=== PATIENT | male | born 1935 | race Caucasian/White ===

== ENCOUNTER 2020-04-06 16:23 | Inpatient (IN) | payer MEDICARE, OTHER ==
[~2020-04-06] VITALS: Ht 170.2 cm; Wt 70.8 kg
[2020-04-06] MEDS ORDERED: METO-357 PO (16:56)
[2020-04-06] MEDS ORDERED: MEMA10TA PO (16:56)
[2020-04-06] MEDS ORDERED: GABA-536 PO (16:56)
[2020-04-06] MEDS ORDERED: LEVO25TA2 PO (16:56)
[2020-04-06] MEDS ORDERED: TORS20TA3 PO (16:56)
[2020-04-06] MEDS ORDERED: TAMS-3 PO (16:56)
[2020-04-06] MEDS ORDERED: ROSU40TA PO (16:56)
[2020-04-06] MEDS ORDERED: OLANZAPINE 10 MG VIAL IM ONE (17:30)
[2020-04-06 17:45] VITALS: BP 167/84
[2020-04-06] MEDS ORDERED: MAG HYDROX/AL HYDROX/SIMETH 30 ML LIQUID UDC PO PRN (17:45)
[2020-04-06] MEDS ORDERED: MAGNESIUM HYDROXIDE 30 ML LIQUID UDC PO PRN (17:45)
[2020-04-06] MEDS ORDERED: ACETAMINOPHEN 325 MG TABLET PO PRN (17:45)
[2020-04-06] MEDS ORDERED: TEMAZEPAM 7.5 MG CAPSULE PO PRN (17:45)
[2020-04-06 20:15] VITALS: BP 174/71
[2020-04-06] MEDS: ATORVASTATIN 40 MG TABLET PO SCH (20:19)
[2020-04-06] MEDS: LORAZEPAM 0.5 MG TABLET PO PRN (20:19)
[2020-04-07 06:35] LABS: ALANINE AMINOTRANSFERASE 26 U/L (16-63); ALKALINE PHOSPHATASE 55 U/L (50-136); ASPARTATE AMINOTRANSFERASE 20 U/L (15-37); BILIRUBIN,TOTAL 0.5 mg/dL (0.2-1.0); CARBON DIOXIDE 27 mmol/L (21-32); CHLORIDE 107 mmol/L (98-107); CREATININE 2.4 mg/dL (0.6-1.3); GLUCOSE 156 mg/dL (74-106); POTASSIUM 3.6 mmol/L (3.5-5.1); TOTAL PROTEIN, SERUM 6.5 g/dL (6.4-8.2); UREA NITROGEN, BLOOD 49 mg/dL (7-18)
[2020-04-07 07:30] VITALS: BP 125/56
[2020-04-07] MEDS: FUROSEMIDE 40 MG TABLET PO SCH (08:24)
[2020-04-07] MEDS: MEMANTINE HCL 10 MG TABLET PO SCH (08:24)
[2020-04-07] MEDS: LEVOTHYROXINE SODIUM 25 MCG TABLET PO SCH (08:25)
[2020-04-07] MEDS: GABAPENTIN 400 MG CAPSULE PO SCH ×2 (08:25→17:00)
[2020-04-07] MEDS: METOPROLOL SUCCINATE XL 50 MG TAB.SR.24H PO SCH (08:26)
[2020-04-07] MEDS ORDERED: TAMSULOSIN HCL 0.4 MG CAP.SR.24H PO SCH (09:00)
[2020-04-07] MEDS: risperiDONE 0.25 MG TABLET PO SCH ×2 (09:31→17:00)
[2020-04-07 15:53] VITALS: BP 121/56
[2020-04-07] MEDS ORDERED: CLOP75TA15 PO (18:46)
[2020-04-07] MEDS ORDERED: DONE10TA11 PO (18:50)
[2020-04-07] MEDS ORDERED: TADA5TAB13 PO (18:50)
[2020-04-07 20:12] VITALS: BP 147/50
[2020-04-07] MEDS: ATORVASTATIN 40 MG TABLET PO SCH (20:13)
[2020-04-07] MEDS: TAMSULOSIN HCL 0.4 MG CAP.SR.24H PO SCH (20:13)
[2020-04-07] MEDS: TRAZODONE 50 MG TABLET PO SCH (20:13)
[2020-04-08 07:30] VITALS: BP 126/48
[2020-04-08] MEDS: METOPROLOL SUCCINATE XL 50 MG TAB.SR.24H PO SCH (08:51)
[2020-04-08] MEDS: risperiDONE 0.25 MG TABLET PO SCH ×2 (08:51→16:55)
[2020-04-08] MEDS: FUROSEMIDE 40 MG TABLET PO SCH (08:51)
[2020-04-08] MEDS: GABAPENTIN 400 MG CAPSULE PO SCH ×2 (08:51→16:55)
[2020-04-08] MEDS: MEMANTINE HCL 10 MG TABLET PO SCH (08:55)
[2020-04-08] MEDS: LEVOTHYROXINE SODIUM 25 MCG TABLET PO SCH (10:05)
[2020-04-08] MEDS: DONEPEZIL 10 MG TABLET PO SCH (12:37)
[2020-04-08] MEDS: LORAZEPAM 0.5 MG TABLET PO PRN ×2 (12:37→20:02)
[2020-04-08] MEDS: CLOPIDOGREL 75 MG TABLET PO SCH (12:37)
[2020-04-08 14:54] VITALS: BP 114/46
[2020-04-08] MEDS: ATORVASTATIN 40 MG TABLET PO SCH (20:01)
[2020-04-08] MEDS: TAMSULOSIN HCL 0.4 MG CAP.SR.24H PO SCH (20:02)
[2020-04-08] MEDS: TRAZODONE 50 MG TABLET PO SCH (20:02)
[2020-04-08 20:07] VITALS: BP 158/74
[2020-04-09 07:30] VITALS: BP 144/46
[2020-04-09 07:48] LABS: BASOPHILS % (AUTO) 0.3 % (0.0-2.0); EOSINOPHILS # (AUTO) 0.1 K/uL (0.0-0.7); EOSINOPHILS % (AUTO) 2.4 % (0.0-7.0); HEMATOCRIT 27.9 % (36.7-47.1); HEMOGLOBIN 9.7 g/dL (12.5-16.3); LYMPHOCYTES % (AUTO) 20.1 % (20.5-51.5); MEAN CORPUSCULAR HGB CONC 35 g/dL (32.5-36.3); MEAN CORPUSCULAR VOLUME 103.9 fL (73.0-96.2); MONOCYTES # (AUTO) 0.5 K/uL (2.0-10.0); NEUTROPHILS # (AUTO) 3.5 K/uL (1.8-8.9); NEUTROPHILS % (AUTO) 67.2 % (38.5-71.5); PLATELET COUNT (AUTO) 141 K/uL (152-348); RED BLOOD CELL COUNT(AUTO) 2.68 MIL/uL (4.06-5.63); WHITE BLOOD COUNT (AUTO) 5.2 K/uL (3.6-10.2)
[2020-04-09 08:09] LABS: ALANINE AMINOTRANSFERASE 19 U/L (16-63); ALKALINE PHOSPHATASE 50 U/L (50-136); ASPARTATE AMINOTRANSFERASE 15 U/L (15-37); BILIRUBIN,TOTAL 0.4 mg/dL (0.2-1.0); CARBON DIOXIDE 24 mmol/L (21-32); CHLORIDE 104 mmol/L (98-107); CREATININE 3.6 mg/dL (0.6-1.3); GLUCOSE 192 mg/dL (74-106); MAGNESIUM 2.3 mg/dL (1.8-2.4); PHOSPHOROUS 4.5 mg/dL (2.5-4.9); POTASSIUM 4.9 mmol/L (3.5-5.1); TOTAL PROTEIN, SERUM 5.8 g/dL (6.4-8.2); UREA NITROGEN, BLOOD 71 mg/dL (7-18)
[2020-04-09] MEDS ORDERED: DEXTROSE 50% 50 ML DISP.SYRIN IV PRN (09:30)
[2020-04-09] MEDS: BLOOD SUGAR DIAGNOSTIC 1 EACH STRIP VI SCH ×4 (09:30→20:07)
[2020-04-09] MEDS: risperiDONE 0.25 MG TABLET PO SCH ×2 (11:53→17:29)
[2020-04-09] MEDS: FUROSEMIDE 40 MG TABLET PO SCH (11:53)
[2020-04-09] MEDS: DONEPEZIL 10 MG TABLET PO SCH (11:54)
[2020-04-09] MEDS: METOPROLOL SUCCINATE XL 50 MG TAB.SR.24H PO SCH (11:55)
[2020-04-09] MEDS: GABAPENTIN 400 MG CAPSULE PO SCH ×2 (11:55→17:29)
[2020-04-09] MEDS: CLOPIDOGREL 75 MG TABLET PO SCH (11:56)
[2020-04-09] MEDS: MEMANTINE HCL 5 MG TABLET PO SCH ×2 (11:57→17:29)
[2020-04-09] MEDS: LEVOTHYROXINE SODIUM 25 MCG TABLET PO SCH (11:58)
[2020-04-09] MEDS: Z GUARD REMEDY PASTE 57 GM TUBE TOP SCH ×2 (11:59→20:40)
[2020-04-09 15:22] VITALS: BP 153/53
[2020-04-09] MEDS: INSULIN REGULAR, HUMAN 300 UNIT/3 ML VIAL SQ PRN ×2 (16:35→20:12)
[2020-04-09] MEDS ORDERED: INSULIN REGULAR, HUMAN 300 UNIT/3 ML VIAL SQ ONE (17:05)
[2020-04-09 18:41] LABS: *BILIRUBIN,URIN NEGATIVE (NEGATIVE); *BLOOD, URINE NEGATIVE (NEGATIVE); *CLARITY,URINE CLEAR (CLEAR); *COLOR,URINE YELLOW (YELLOW); *KETONES,URINE NEGATIVE (NEGATIVE); *UROBILINOGEN,URINE 0.2 E.U./dl (NORMAL); LEUKOCYTE ESTERASE ,URINE NEGATIVE (NEGATIVE); NITRITE, URINE NEGATIVE (NEGATIVE); UGLUCOSE NEGATIVE (NEGATIVE)
[2020-04-09 18:43] LABS: *CREATININE,URINE 113.1 mg/dL (30-125); *URINE TOTAL PROTEIN RANDOM 60.5 mg/dL (<150/24HR)
[2020-04-09 19:59] VITALS: BP 156/59
[2020-04-09] MEDS: INSULIN GLARGINE,HUM 300 UNITS/3 ML CARTRIDGE SQ SCH (20:10)
[2020-04-09] MEDS: ATORVASTATIN 40 MG TABLET PO SCH (20:40)
[2020-04-09] MEDS: TRAZODONE 50 MG TABLET PO SCH (20:40)
[2020-04-09] MEDS: TAMSULOSIN HCL 0.4 MG CAP.SR.24H PO SCH (20:40)
[2020-04-09] MEDS: LORAZEPAM 0.5 MG TABLET PO PRN (20:42)
[2020-04-10] MEDS: BLOOD SUGAR DIAGNOSTIC 1 EACH STRIP VI SCH ×4 (06:07→20:12)
[2020-04-10 07:30] VITALS: BP 159/46
[2020-04-10] MEDS: FUROSEMIDE 40 MG TABLET PO SCH (09:44)
[2020-04-10] MEDS: LEVOTHYROXINE SODIUM 25 MCG TABLET PO SCH (09:44)
[2020-04-10] MEDS: risperiDONE 0.25 MG TABLET PO SCH ×3 (09:44→17:07)
[2020-04-10] MEDS: GABAPENTIN 400 MG CAPSULE PO SCH ×2 (09:44→17:07)
[2020-04-10] MEDS: MEMANTINE HCL 5 MG TABLET PO SCH ×2 (09:44→17:07)
[2020-04-10] MEDS: CLOPIDOGREL 75 MG TABLET PO SCH (09:44)
[2020-04-10] MEDS: DONEPEZIL 10 MG TABLET PO SCH (09:44)
[2020-04-10] MEDS: METOPROLOL SUCCINATE XL 50 MG TAB.SR.24H PO SCH (09:44)
[2020-04-10] MEDS: Z GUARD REMEDY PASTE 57 GM TUBE TOP SCH ×2 (09:45→20:08)
[2020-04-10] MEDS: INSULIN REGULAR, HUMAN 300 UNIT/3 ML VIAL SQ PRN ×3 (12:18→20:16)
[2020-04-10 16:00] VITALS: BP 149/50
[2020-04-10] MEDS: TAMSULOSIN HCL 0.4 MG CAP.SR.24H PO SCH (20:08)
[2020-04-10] MEDS: TRAZODONE 50 MG TABLET PO SCH (20:08)
[2020-04-10] MEDS: ATORVASTATIN 40 MG TABLET PO SCH (20:12)
[2020-04-10 20:14] VITALS: BP 147/62
[2020-04-10] MEDS: INSULIN GLARGINE,HUM 300 UNITS/3 ML CARTRIDGE SQ SCH (20:17)
[2020-04-10] MEDS: LORAZEPAM 0.5 MG TABLET PO PRN (21:51)
[2020-04-11] MEDS: BLOOD SUGAR DIAGNOSTIC 1 EACH STRIP VI SCH ×4 (06:32→20:36)
[2020-04-11 07:30] VITALS: BP 122/48
[2020-04-11] MEDS: INSULIN REGULAR, HUMAN 300 UNIT/3 ML VIAL SQ PRN ×3 (08:12→20:54)
[2020-04-11] MEDS ORDERED: Tadalafil 5 MG PO SCH (09:00)
[2020-04-11] MEDS: GABAPENTIN 400 MG CAPSULE PO SCH ×2 (09:41→17:15)
[2020-04-11] MEDS: DONEPEZIL 10 MG TABLET PO SCH (09:41)
[2020-04-11] MEDS: MEMANTINE HCL 5 MG TABLET PO SCH ×2 (09:41→17:15)
[2020-04-11] MEDS: risperiDONE 0.25 MG TABLET PO SCH ×3 (09:41→17:15)
[2020-04-11] MEDS: FUROSEMIDE 40 MG TABLET PO SCH (09:41)
[2020-04-11] MEDS: CLOPIDOGREL 75 MG TABLET PO SCH (09:42)
[2020-04-11] MEDS: METOPROLOL SUCCINATE XL 50 MG TAB.SR.24H PO SCH (09:42)
[2020-04-11] MEDS: LEVOTHYROXINE SODIUM 25 MCG TABLET PO SCH (09:43)
[2020-04-11] MEDS: Z GUARD REMEDY PASTE 57 GM TUBE TOP SCH ×2 (09:45→20:37)
[2020-04-11 09:55] LABS: BASOPHILS % (AUTO) 0.4 % (0.0-2.0); EOSINOPHILS # (AUTO) 0.1 K/uL (0.0-0.7); EOSINOPHILS % (AUTO) 2.8 % (0.0-7.0); HEMATOCRIT 29.6 % (36.7-47.1); HEMOGLOBIN 10.1 g/dL (12.5-16.3); LYMPHOCYTES % (AUTO) 20.1 % (20.5-51.5); MEAN CORPUSCULAR HEMOGLOBIN 35.3 uug (23.8-33.4); MEAN CORPUSCULAR HGB CONC 34 g/dL (32.5-36.3); MEAN CORPUSCULAR VOLUME 102.9 fL (73.0-96.2); MONOCYTES # (AUTO) 0.5 K/uL (2.0-10.0); MONOCYTES % (AUTO) 9.8 % (0.0-11.0); NEUTROPHILS # (AUTO) 3.4 K/uL (1.8-8.9); NEUTROPHILS % (AUTO) 66.9 % (38.5-71.5); PLATELET COUNT (AUTO) 154 K/uL (152-348); RED BLOOD CELL COUNT(AUTO) 2.88 MIL/uL (4.06-5.63)
[2020-04-11 10:23] LABS: CREATININE 3.4 mg/dL (0.6-1.3)
[2020-04-11 10:25] LABS: UREA NITROGEN, BLOOD 88 mg/dL (7-18)
[2020-04-11] MEDS ORDERED: CLOTRIMAZOLE 1% CREAM 30 GM TUBE TOP SCH (17:00)
[2020-04-11] MEDS: CLOTRIMAZOLE 1% CREAM 30 GM TUBE TOP SCH (17:15)
[2020-04-11 20:39] VITALS: BP 119/52
[2020-04-11] MEDS: ATORVASTATIN 40 MG TABLET PO SCH (20:53)
[2020-04-11] MEDS: TAMSULOSIN HCL 0.4 MG CAP.SR.24H PO SCH (20:53)
[2020-04-11] MEDS: LORAZEPAM 0.5 MG TABLET PO PRN (20:53)
[2020-04-11] MEDS: TRAZODONE 50 MG TABLET PO SCH (20:53)
[2020-04-11] MEDS: INSULIN GLARGINE,HUM 300 UNITS/3 ML CARTRIDGE SQ SCH (20:55)
[2020-04-12] MEDS: BLOOD SUGAR DIAGNOSTIC 1 EACH STRIP VI SCH ×4 (06:43→20:42)
[2020-04-12 07:30] VITALS: BP 126/56
[2020-04-12] MEDS: MEMANTINE HCL 5 MG TABLET PO SCH ×2 (09:00→17:24)
[2020-04-12] MEDS ORDERED: CLOTRIMAZOLE 1% CREAM 30 GM TUBE TOP SCH (09:00)
[2020-04-12] MEDS: CLOPIDOGREL 75 MG TABLET PO SCH (09:00)
[2020-04-12] MEDS: METOPROLOL SUCCINATE XL 50 MG TAB.SR.24H PO SCH (09:00)
[2020-04-12] MEDS: risperiDONE 0.25 MG TABLET PO SCH ×3 (09:00→17:25)
[2020-04-12] MEDS: GABAPENTIN 400 MG CAPSULE PO SCH (09:00)
[2020-04-12] MEDS: LEVOTHYROXINE SODIUM 25 MCG TABLET PO SCH (09:00)
[2020-04-12] MEDS: DONEPEZIL 10 MG TABLET PO SCH (09:00)
[2020-04-12] MEDS: FUROSEMIDE 40 MG TABLET PO SCH (09:00)
[2020-04-12 09:27] LABS: BASOPHILS % (AUTO) 0.3 % (0.0-2.0); EOSINOPHILS # (AUTO) 0.1 K/uL (0.0-0.7); EOSINOPHILS % (AUTO) 1.7 % (0.0-7.0); HEMATOCRIT 32.1 % (36.7-47.1); HEMOGLOBIN 10.8 g/dL (12.5-16.3); LYMPHOCYTES # (AUTO) 1.1 K/uL (20.0-40.0); LYMPHOCYTES % (AUTO) 19.7 % (20.5-51.5); MEAN CORPUSCULAR HEMOGLOBIN 34.7 uug (23.8-33.4); MEAN CORPUSCULAR HGB CONC 34 g/dL (32.5-36.3); MEAN CORPUSCULAR VOLUME 102.7 fL (73.0-96.2); MONOCYTES # (AUTO) 0.6 K/uL (2.0-10.0); MONOCYTES % (AUTO) 9.8 % (0.0-11.0); NEUTROPHILS # (AUTO) 3.9 K/uL (1.8-8.9); NEUTROPHILS % (AUTO) 68.5 % (38.5-71.5); PLATELET COUNT (AUTO) 174 K/uL (152-348); RED BLOOD CELL COUNT(AUTO) 3.13 MIL/uL (4.06-5.63); WHITE BLOOD COUNT (AUTO) 5.7 K/uL (3.6-10.2)
[2020-04-12 09:39] LABS: ALANINE AMINOTRANSFERASE 23 U/L (16-63); ALKALINE PHOSPHATASE 55 U/L (50-136); ASPARTATE AMINOTRANSFERASE 23 U/L (15-37); BILIRUBIN,TOTAL 0.4 mg/dL (0.2-1.0); CARBON DIOXIDE 25 mmol/L (21-32); CHLORIDE 103 mmol/L (98-107); CREATININE 2.8 mg/dL (0.6-1.3); GLUCOSE 197 mg/dL (74-106); MAGNESIUM 2.4 mg/dL (1.8-2.4); POTASSIUM 4.5 mmol/L (3.5-5.1); TOTAL PROTEIN, SERUM 6.5 g/dL (6.4-8.2)
[2020-04-12] MEDS: CLOTRIMAZOLE 1% CREAM 30 GM TUBE TOP SCH ×2 (10:01→17:47)
[2020-04-12] MEDS: Z GUARD REMEDY PASTE 57 GM TUBE TOP SCH ×2 (10:01→20:42)
[2020-04-12 10:06] LABS: UREA NITROGEN, BLOOD 87 mg/dL (7-18)
[2020-04-12] MEDS ORDERED: IV NS 1000 ML 1,000 ML IV ONE (10:30)
[2020-04-12] MEDS: DIVALPROEX SPRINKLE 125 MG CAP.SPRINK PO SCH ×2 (14:21→17:24)
[2020-04-12 16:44] VITALS: BP 151/51
[2020-04-12] MEDS ORDERED: GABAPENTIN 400 MG CAPSULE PO SCH (17:00)
[2020-04-12] MEDS: INSULIN REGULAR, HUMAN 300 UNIT/3 ML VIAL SQ PRN ×2 (18:01→20:47)
[2020-04-12] MEDS: TAMSULOSIN HCL 0.4 MG CAP.SR.24H PO SCH (20:03)
[2020-04-12] MEDS: ATORVASTATIN 40 MG TABLET PO SCH (20:03)
[2020-04-12] MEDS: GABAPENTIN 300 MG CAPSULE PO SCH (20:03)
[2020-04-12] MEDS: LORAZEPAM 0.5 MG TABLET PO PRN (20:03)
[2020-04-12 20:24] VITALS: BP 168/54
[2020-04-12] MEDS: INSULIN GLARGINE,HUM 300 UNITS/3 ML CARTRIDGE SQ SCH (20:48)
[2020-04-13 06:49] LABS: BASOPHILS % (AUTO) 0.4 % (0.0-2.0); EOSINOPHILS # (AUTO) 0.1 K/uL (0.0-0.7); EOSINOPHILS % (AUTO) 1.9 % (0.0-7.0); HEMATOCRIT 30.9 % (36.7-47.1); HEMOGLOBIN 10.8 g/dL (12.5-16.3); LYMPHOCYTES # (AUTO) 0.2 K/uL (20.0-40.0); LYMPHOCYTES % (AUTO) 2.9 % (20.5-51.5); MEAN CORPUSCULAR HGB CONC 35 g/dL (32.5-36.3); MEAN CORPUSCULAR VOLUME 102.8 fL (73.0-96.2); MONOCYTES # (AUTO) 0.2 K/uL (2.0-10.0); MONOCYTES % (AUTO) 2.9 % (0.0-11.0); NEUTROPHILS # (AUTO) 4.8 K/uL (1.8-8.9); NEUTROPHILS % (AUTO) 91.9 % (38.5-71.5); PLATELET COUNT (AUTO) 180 K/uL (152-348); WHITE BLOOD COUNT (AUTO) 5.2 K/uL (3.6-10.2)
[2020-04-13] MEDS: BLOOD SUGAR DIAGNOSTIC 1 EACH STRIP VI SCH ×4 (06:54→21:02)
[2020-04-13 07:05] LABS: CARBON DIOXIDE 28 mmol/L (21-32); CHLORIDE 106 mmol/L (98-107); CREATININE 2.2 mg/dL (0.6-1.3); GLUCOSE 117 mg/dL (74-106); MAGNESIUM 2.2 mg/dL (1.8-2.4); PHOSPHOROUS 4.2 mg/dL (2.5-4.9); POTASSIUM 5.9 mmol/L (3.5-5.1); UREA NITROGEN, BLOOD 79 mg/dL (7-18)
[2020-04-13 07:30] VITALS: BP 172/70
[2020-04-13] MEDS: DONEPEZIL 10 MG TABLET PO SCH (09:17)
[2020-04-13] MEDS: METOPROLOL SUCCINATE XL 50 MG TAB.SR.24H PO SCH (09:17)
[2020-04-13] MEDS: FUROSEMIDE 40 MG TABLET PO SCH (09:18)
[2020-04-13] MEDS: LEVOTHYROXINE SODIUM 25 MCG TABLET PO SCH (09:18)
[2020-04-13] MEDS: risperiDONE 0.25 MG TABLET PO SCH ×3 (09:18→17:10)
[2020-04-13] MEDS: ATORVASTATIN 40 MG TABLET PO SCH (09:18)
[2020-04-13] MEDS: MEMANTINE HCL 5 MG TABLET PO SCH ×2 (09:18→17:10)
[2020-04-13] MEDS: DIVALPROEX SPRINKLE 125 MG CAP.SPRINK PO SCH ×3 (09:18→17:11)
[2020-04-13] MEDS: CLOPIDOGREL 75 MG TABLET PO SCH (09:18)
[2020-04-13] MEDS: CLOTRIMAZOLE 1% CREAM 30 GM TUBE TOP SCH ×2 (09:20→18:25)
[2020-04-13] MEDS: Z GUARD REMEDY PASTE 57 GM TUBE TOP SCH ×2 (09:20→20:49)
[2020-04-13] MEDS: GABAPENTIN 100 MG CAPSULE PO SCH ×2 (09:23→17:10)
[2020-04-13] MEDS ORDERED: SODIUM POLYSTYRENE SULFONATE 15 G/60 ML LIQUID UDC PO ONE (11:15)
[2020-04-13] MEDS ORDERED: IV NS 1000 ML 1,000 ML IV ONE (12:00)
[2020-04-13] MEDS: INSULIN REGULAR, HUMAN 300 UNIT/3 ML VIAL SQ PRN ×3 (12:31→21:04)
[2020-04-13] MEDS: TADALAFIL 5 MG PO SCH (15:10)
[2020-04-13 16:00] VITALS: BP 152/66
[2020-04-13 16:27] VITALS: BP 154/61
[2020-04-13] MEDS: MEGESTROL ACETATE 20 MG TABLET PO SCH (17:10)
[2020-04-13 20:16] VITALS: BP 121/51
[2020-04-13] MEDS: TAMSULOSIN HCL 0.4 MG CAP.SR.24H PO SCH (20:22)
[2020-04-13] MEDS: GABAPENTIN 300 MG CAPSULE PO SCH (20:27)
[2020-04-13] MEDS ORDERED: TRAZODONE 50 MG TABLET PO SCH (21:00)
[2020-04-13] MEDS: INSULIN GLARGINE,HUM 300 UNITS/3 ML CARTRIDGE SQ SCH (21:06)
[2020-04-14] MEDS: LEVOTHYROXINE SODIUM 25 MCG TABLET PO SCH (06:30)
[2020-04-14] MEDS: BLOOD SUGAR DIAGNOSTIC 1 EACH STRIP VI SCH ×4 (06:34→21:03)
[2020-04-14 07:30] VITALS: BP 114/60
[2020-04-14] MEDS: DIVALPROEX SPRINKLE 125 MG CAP.SPRINK PO SCH ×3 (09:01→17:36)
[2020-04-14] MEDS: risperiDONE 0.25 MG TABLET PO SCH ×3 (09:01→17:36)
[2020-04-14] MEDS: MEGESTROL ACETATE 20 MG TABLET PO SCH ×2 (09:01→18:16)
[2020-04-14] MEDS: DONEPEZIL 10 MG TABLET PO SCH (09:01)
[2020-04-14] MEDS: METOPROLOL SUCCINATE XL 50 MG TAB.SR.24H PO SCH (09:02)
[2020-04-14] MEDS: GABAPENTIN 100 MG CAPSULE PO SCH ×2 (09:03→17:36)
[2020-04-14] MEDS: CLOPIDOGREL 75 MG TABLET PO SCH (09:03)
[2020-04-14] MEDS: MEMANTINE HCL 5 MG TABLET PO SCH ×2 (09:03→17:36)
[2020-04-14] MEDS: FUROSEMIDE 40 MG TABLET PO SCH (09:03)
[2020-04-14] MEDS: Z GUARD REMEDY PASTE 57 GM TUBE TOP SCH ×2 (09:04→20:46)
[2020-04-14] MEDS: TADALAFIL 5 MG PO SCH (09:04)
[2020-04-14] MEDS: CLOTRIMAZOLE 1% CREAM 30 GM TUBE TOP SCH ×2 (09:04→17:36)
[2020-04-14 11:12] LABS: BASOPHILS % (AUTO) 0.2 % (0.0-2.0); EOSINOPHILS # (AUTO) 0.1 K/uL (0.0-0.7); EOSINOPHILS % (AUTO) 1.4 % (0.0-7.0); HEMATOCRIT 29.2 % (36.7-47.1); HEMOGLOBIN 9.9 g/dL (12.5-16.3); LYMPHOCYTES # (AUTO) 0.4 K/uL (20.0-40.0); LYMPHOCYTES % (AUTO) 7.7 % (20.5-51.5); MEAN CORPUSCULAR HEMOGLOBIN 34.8 uug (23.8-33.4); MEAN CORPUSCULAR HGB CONC 34 g/dL (32.5-36.3); MEAN CORPUSCULAR VOLUME 102.9 fL (73.0-96.2); MONOCYTES # (AUTO) 0.4 K/uL (2.0-10.0); MONOCYTES % (AUTO) 8.2 % (0.0-11.0); NEUTROPHILS # (AUTO) 3.8 K/uL (1.8-8.9); NEUTROPHILS % (AUTO) 82.5 % (38.5-71.5); PLATELET COUNT (AUTO) 170 K/uL (152-348); RED BLOOD CELL COUNT(AUTO) 2.83 MIL/uL (4.06-5.63); WHITE BLOOD COUNT (AUTO) 4.7 K/uL (3.6-10.2)
[2020-04-14 11:19] LABS: CARBON DIOXIDE 27 mmol/L (21-32); CHLORIDE 104 mmol/L (98-107); CREATININE 2.2 mg/dL (0.6-1.3); GLUCOSE 244 mg/dL (74-106); MAGNESIUM 2.1 mg/dL (1.8-2.4); PHOSPHOROUS 3.4 mg/dL (2.5-4.9); POTASSIUM 4.9 mmol/L (3.5-5.1); UREA NITROGEN, BLOOD 77 mg/dL (7-18)
[2020-04-14 16:00] VITALS: BP 135/57
[2020-04-14 19:51] VITALS: BP 119/49
[2020-04-14] MEDS: ATORVASTATIN 40 MG TABLET PO SCH (20:41)
[2020-04-14] MEDS: TAMSULOSIN HCL 0.4 MG CAP.SR.24H PO SCH (20:42)
[2020-04-14] MEDS: GABAPENTIN 300 MG CAPSULE PO SCH (20:42)
[2020-04-14] MEDS: risperiDONE 0.5 MG TABLET PO SCH (20:42)
[2020-04-14] MEDS: INSULIN GLARGINE,HUM 300 UNITS/3 ML CARTRIDGE SQ SCH (20:43)
[2020-04-14] MEDS: INSULIN REGULAR, HUMAN 300 UNIT/3 ML VIAL SQ PRN (20:45)
[2020-04-15] MEDS: LEVOTHYROXINE SODIUM 25 MCG TABLET PO SCH (06:18)
[2020-04-15] MEDS: BLOOD SUGAR DIAGNOSTIC 1 EACH STRIP VI SCH ×4 (06:33→20:32)
[2020-04-15 07:30] VITALS: BP 121/51
[2020-04-15 08:14] LABS: BASOPHILS % (AUTO) 0.6 % (0.0-2.0); EOSINOPHILS # (AUTO) 0.1 K/uL (0.0-0.7); EOSINOPHILS % (AUTO) 2.1 % (0.0-7.0); HEMATOCRIT 25.7 % (36.7-47.1); HEMOGLOBIN 8.9 g/dL (12.5-16.3); LYMPHOCYTES # (AUTO) 0.8 K/uL (20.0-40.0); LYMPHOCYTES % (AUTO) 17.6 % (20.5-51.5); MEAN CORPUSCULAR HEMOGLOBIN 35.7 uug (23.8-33.4); MEAN CORPUSCULAR HGB CONC 35 g/dL (32.5-36.3); MEAN CORPUSCULAR VOLUME 102.7 fL (73.0-96.2); MONOCYTES # (AUTO) 0.5 K/uL (2.0-10.0); MONOCYTES % (AUTO) 10.5 % (0.0-11.0); NEUTROPHILS # (AUTO) 3.2 K/uL (1.8-8.9); NEUTROPHILS % (AUTO) 69.2 % (38.5-71.5); PLATELET COUNT (AUTO) 151 K/uL (152-348); WHITE BLOOD COUNT (AUTO) 4.7 K/uL (3.6-10.2)
[2020-04-15 08:16] LABS: CARBON DIOXIDE 27 mmol/L (21-32); CHLORIDE 106 mmol/L (98-107); CREATININE 2.3 mg/dL (0.6-1.3); GLUCOSE 82 mg/dL (74-106); PHOSPHOROUS 4.2 mg/dL (2.5-4.9); POTASSIUM 4.5 mmol/L (3.5-5.1)
[2020-04-15 08:35] LABS: UREA NITROGEN, BLOOD 82 mg/dL (7-18)
[2020-04-15] MEDS: DIVALPROEX SPRINKLE 125 MG CAP.SPRINK PO SCH ×3 (10:01→18:07)
[2020-04-15] MEDS: MEMANTINE HCL 5 MG TABLET PO SCH ×2 (10:02→18:08)
[2020-04-15] MEDS: risperiDONE 0.25 MG TABLET PO SCH ×3 (10:02→18:08)
[2020-04-15] MEDS: METOPROLOL SUCCINATE XL 50 MG TAB.SR.24H PO SCH (10:02)
[2020-04-15] MEDS: GABAPENTIN 100 MG CAPSULE PO SCH ×2 (10:03→18:07)
[2020-04-15] MEDS: DONEPEZIL 10 MG TABLET PO SCH (10:03)
[2020-04-15] MEDS: MEGESTROL ACETATE 20 MG TABLET PO SCH ×2 (10:03→17:00)
[2020-04-15] MEDS: CLOPIDOGREL 75 MG TABLET PO SCH (10:03)
[2020-04-15] MEDS: FUROSEMIDE 40 MG TABLET PO SCH (10:03)
[2020-04-15] MEDS: Z GUARD REMEDY PASTE 57 GM TUBE TOP SCH ×2 (10:04→20:32)
[2020-04-15] MEDS: CLOTRIMAZOLE 1% CREAM 30 GM TUBE TOP SCH ×2 (10:04→18:08)
[2020-04-15] MEDS: TADALAFIL 5 MG PO SCH (10:08)
[2020-04-15] MEDS: INSULIN REGULAR, HUMAN 300 UNIT/3 ML VIAL SQ PRN ×3 (12:27→20:37)
[2020-04-15 16:00] VITALS: BP 138/46
[2020-04-15] MEDS: ATORVASTATIN 40 MG TABLET PO SCH (20:32)
[2020-04-15] MEDS: LORAZEPAM 0.5 MG TABLET PO PRN (20:32)
[2020-04-15] MEDS: risperiDONE 0.5 MG TABLET PO SCH (20:32)
[2020-04-15] MEDS: TAMSULOSIN HCL 0.4 MG CAP.SR.24H PO SCH (20:32)
[2020-04-15] MEDS: GABAPENTIN 300 MG CAPSULE PO SCH (20:33)
[2020-04-15] MEDS: INSULIN GLARGINE,HUM 300 UNITS/3 ML CARTRIDGE SQ SCH (20:36)
[2020-04-15 21:41] VITALS: BP 129/57
[2020-04-16] MEDS: LORAZEPAM 0.5 MG TABLET PO PRN ×2 (02:28→23:30)
[2020-04-16] MEDS: BLOOD SUGAR DIAGNOSTIC 1 EACH STRIP VI SCH ×4 (05:51→21:34)
[2020-04-16] MEDS: LEVOTHYROXINE SODIUM 25 MCG TABLET PO SCH (05:51)
[2020-04-16 07:30] VITALS: BP 136/56
[2020-04-16 07:59] LABS: BASOPHILS % (AUTO) 0.3 % (0.0-2.0); EOSINOPHILS # (AUTO) 0.1 K/uL (0.0-0.7); EOSINOPHILS % (AUTO) 0.6 % (0.0-7.0); HEMATOCRIT 28.1 % (36.7-47.1); HEMOGLOBIN 9.7 g/dL (12.5-16.3); LYMPHOCYTES # (AUTO) 1.1 K/uL (20.0-40.0); LYMPHOCYTES % (AUTO) 12.3 % (20.5-51.5); MEAN CORPUSCULAR HEMOGLOBIN 35.4 uug (23.8-33.4); MEAN CORPUSCULAR HGB CONC 34 g/dL (32.5-36.3); MONOCYTES % (AUTO) 11.1 % (0.0-11.0); NEUTROPHILS # (AUTO) 6.6 K/uL (1.8-8.9); NEUTROPHILS % (AUTO) 75.7 % (38.5-71.5); PLATELET COUNT (AUTO) 164 K/uL (152-348); RED BLOOD CELL COUNT(AUTO) 2.73 MIL/uL (4.06-5.63); WHITE BLOOD COUNT (AUTO) 8.7 K/uL (3.6-10.2)
[2020-04-16 08:16] LABS: CARBON DIOXIDE 29 mmol/L (21-32); CHLORIDE 106 mmol/L (98-107); CREATININE 2.4 mg/dL (0.6-1.3); GLUCOSE 151 mg/dL (74-106); MAGNESIUM 2.2 mg/dL (1.8-2.4); PHOSPHOROUS 4.2 mg/dL (2.5-4.9); POTASSIUM 5.3 mmol/L (3.5-5.1)
[2020-04-16 08:22] LABS: UREA NITROGEN, BLOOD 87 mg/dL (7-18)
[2020-04-16] MEDS ORDERED: SODIUM POLYSTYRENE SULFONATE 15 G/60 ML LIQUID UDC PO ONE (08:30)
[2020-04-16] MEDS: DIVALPROEX SPRINKLE 125 MG CAP.SPRINK PO SCH ×3 (09:27→17:33)
[2020-04-16] MEDS: METOPROLOL SUCCINATE XL 50 MG TAB.SR.24H PO SCH (09:28)
[2020-04-16] MEDS: MEGESTROL ACETATE 20 MG TABLET PO SCH ×2 (09:28→17:33)
[2020-04-16] MEDS: DONEPEZIL 10 MG TABLET PO SCH (09:28)
[2020-04-16] MEDS: risperiDONE 0.25 MG TABLET PO SCH ×3 (09:28→17:38)
[2020-04-16] MEDS: CLOPIDOGREL 75 MG TABLET PO SCH (09:28)
[2020-04-16] MEDS: GABAPENTIN 100 MG CAPSULE PO SCH ×2 (09:28→17:33)
[2020-04-16] MEDS: FUROSEMIDE 40 MG TABLET PO SCH (09:28)
[2020-04-16] MEDS: MEMANTINE HCL 5 MG TABLET PO SCH ×2 (09:29→17:32)
[2020-04-16] MEDS: CLOTRIMAZOLE 1% CREAM 30 GM TUBE TOP SCH ×2 (09:30→17:33)
[2020-04-16] MEDS: Z GUARD REMEDY PASTE 57 GM TUBE TOP SCH ×2 (09:31→21:51)
[2020-04-16] MEDS: TADALAFIL 5 MG PO SCH (09:33)
[2020-04-16 15:33] VITALS: BP 131/59
[2020-04-16 20:03] VITALS: BP 132/55
[2020-04-16] MEDS: INSULIN REGULAR, HUMAN 300 UNIT/3 ML VIAL SQ PRN (21:22)
[2020-04-16] MEDS: INSULIN GLARGINE,HUM 300 UNITS/3 ML CARTRIDGE SQ SCH (21:30)
[2020-04-16] MEDS: risperiDONE 0.5 MG TABLET PO SCH (21:30)
[2020-04-16] MEDS: TAMSULOSIN HCL 0.4 MG CAP.SR.24H PO SCH (21:30)
[2020-04-16] MEDS: GABAPENTIN 300 MG CAPSULE PO SCH (21:30)
[2020-04-16] MEDS: ATORVASTATIN 40 MG TABLET PO SCH (21:51)
[2020-04-17] MEDS: LEVOTHYROXINE SODIUM 25 MCG TABLET PO SCH (06:12)
[2020-04-17] MEDS: BLOOD SUGAR DIAGNOSTIC 1 EACH STRIP VI SCH ×5 (06:35→20:54)
[2020-04-17 07:30] VITALS: BP 141/58
[2020-04-17 07:49] LABS: BASOPHILS % (AUTO) 0.2 % (0.0-2.0); EOSINOPHILS % (AUTO) 0.6 % (0.0-7.0); HEMATOCRIT 24.3 % (36.7-47.1); HEMOGLOBIN 8.4 g/dL (12.5-16.3); LYMPHOCYTES # (AUTO) 0.7 K/uL (20.0-40.0); LYMPHOCYTES % (AUTO) 10.4 % (20.5-51.5); MEAN CORPUSCULAR HEMOGLOBIN 35.3 uug (23.8-33.4); MEAN CORPUSCULAR HGB CONC 35 g/dL (32.5-36.3); MEAN CORPUSCULAR VOLUME 102.1 fL (73.0-96.2); MONOCYTES # (AUTO) 0.6 K/uL (2.0-10.0); NEUTROPHILS # (AUTO) 5.4 K/uL (1.8-8.9); NEUTROPHILS % (AUTO) 79.8 % (38.5-71.5); PLATELET COUNT (AUTO) 150 K/uL (152-348); WHITE BLOOD COUNT (AUTO) 6.8 K/uL (3.6-10.2)
[2020-04-17 07:54] LABS: RED BLOOD CELL COUNT(AUTO) 2.38 MIL/uL (4.06-5.63)
[2020-04-17 08:11] LABS: CARBON DIOXIDE 26 mmol/L (21-32); CHLORIDE 106 mmol/L (98-107); CREATINE KINASE, TOTAL 396 U/L (39-308); CREATININE 2.4 mg/dL (0.6-1.3); GLUCOSE 99 mg/dL (74-106); MAGNESIUM 1.9 mg/dL (1.8-2.4); PHOSPHOROUS 4.8 mg/dL (2.5-4.9); POTASSIUM 3.8 mmol/L (3.5-5.1)
[2020-04-17 08:17] LABS: UREA NITROGEN, BLOOD 86 mg/dL (7-18)
[2020-04-17] MEDS: MEMANTINE HCL 5 MG TABLET PO SCH ×2 (09:14→17:17)
[2020-04-17] MEDS: DIVALPROEX SPRINKLE 125 MG CAP.SPRINK PO SCH ×3 (09:14→17:17)
[2020-04-17] MEDS: DONEPEZIL 10 MG TABLET PO SCH (09:15)
[2020-04-17] MEDS: GABAPENTIN 100 MG CAPSULE PO SCH ×2 (09:15→17:17)
[2020-04-17] MEDS: risperiDONE 0.25 MG TABLET PO SCH ×3 (09:15→17:17)
[2020-04-17] MEDS: FUROSEMIDE 40 MG TABLET PO SCH (09:15)
[2020-04-17] MEDS: MEGESTROL ACETATE 20 MG TABLET PO SCH ×2 (09:15→17:17)
[2020-04-17] MEDS: METOPROLOL SUCCINATE XL 50 MG TAB.SR.24H PO SCH (09:15)
[2020-04-17] MEDS: CLOPIDOGREL 75 MG TABLET PO SCH (09:15)
[2020-04-17] MEDS: CLOTRIMAZOLE 1% CREAM 30 GM TUBE TOP SCH ×2 (09:16→17:18)
[2020-04-17] MEDS: Z GUARD REMEDY PASTE 57 GM TUBE TOP SCH ×2 (09:16→20:54)
[2020-04-17] MEDS: TADALAFIL 5 MG PO SCH (09:16)
[2020-04-17 11:28] LABS: *BILIRUBIN,URIN NEGATIVE (NEGATIVE); *BLOOD, URINE 3+ (NEGATIVE); *COLOR,URINE YELLOW (YELLOW); *KETONES,URINE NEGATIVE (NEGATIVE); *UROBILINOGEN,URINE 0.2 E.U./dl (NORMAL); LEUKOCYTE ESTERASE ,URINE 3+ (NEGATIVE); NITRITE, URINE NEGATIVE (NEGATIVE); PH,URINE 5.5 (5.0-8.0); UGLUCOSE NEGATIVE (NEGATIVE)
[2020-04-17] MEDS: INSULIN REGULAR, HUMAN 300 UNIT/3 ML VIAL SQ PRN ×3 (11:43→23:32)
[2020-04-17 14:58] LABS: *CLARITY,URINE TURBID (CLEAR)
[2020-04-17 14:59] LABS: BACTERIA,URINE FEW /HPF (NONE SEEN); RBC,URINE 80-100 /HPF (0-3); SQUAMOUS EPITHELIAL CELL,UR NONE SEEN /HPF (NONE SEEN); WBC,URINE TNTC /HPF (0-3)
[2020-04-17 16:00] VITALS: BP 170/65
[2020-04-17] MEDS: CEphaleXIN 500 MG CAPSULE PO SCH (17:17)
[2020-04-17 20:34] VITALS: BP 148/59
[2020-04-17] MEDS: risperiDONE 0.5 MG TABLET PO SCH (20:54)
[2020-04-17] MEDS: ATORVASTATIN 40 MG TABLET PO SCH (20:55)
[2020-04-17] MEDS: TAMSULOSIN HCL 0.4 MG CAP.SR.24H PO SCH (20:55)
[2020-04-17] MEDS: GABAPENTIN 300 MG CAPSULE PO SCH (20:55)
[2020-04-17] MEDS: INSULIN GLARGINE,HUM 300 UNITS/3 ML CARTRIDGE SQ SCH (20:56)
[2020-04-18] MEDS: LEVOTHYROXINE SODIUM 25 MCG TABLET PO SCH (06:03)
[2020-04-18] MEDS: BLOOD SUGAR DIAGNOSTIC 1 EACH STRIP VI SCH (06:39)
[2020-04-18 07:24] LABS: BASOPHILS % (AUTO) 0.3 % (0.0-2.0); EOSINOPHILS # (AUTO) 0.1 K/uL (0.0-0.7); HEMATOCRIT 26.6 % (36.7-47.1); HEMOGLOBIN 9.2 g/dL (12.5-16.3); LYMPHOCYTES # (AUTO) 0.9 K/uL (20.0-40.0); LYMPHOCYTES % (AUTO) 15.6 % (20.5-51.5); MEAN CORPUSCULAR HEMOGLOBIN 35.6 uug (23.8-33.4); MEAN CORPUSCULAR HGB CONC 35 g/dL (32.5-36.3); MEAN CORPUSCULAR VOLUME 102.9 fL (73.0-96.2); MONOCYTES # (AUTO) 0.6 K/uL (2.0-10.0); MONOCYTES % (AUTO) 9.8 % (0.0-11.0); NEUTROPHILS # (AUTO) 4.1 K/uL (1.8-8.9); NEUTROPHILS % (AUTO) 72.3 % (38.5-71.5); PLATELET COUNT (AUTO) 156 K/uL (152-348); RED BLOOD CELL COUNT(AUTO) 2.59 MIL/uL (4.06-5.63); WHITE BLOOD COUNT (AUTO) 5.6 K/uL (3.6-10.2)
[2020-04-18 07:30] VITALS: BP 139/52
[2020-04-18 07:49] LABS: ALANINE AMINOTRANSFERASE 36 U/L (16-63); ALKALINE PHOSPHATASE 48 U/L (50-136); ASPARTATE AMINOTRANSFERASE 29 U/L (15-37); BILIRUBIN,TOTAL 0.3 mg/dL (0.2-1.0); CARBON DIOXIDE 27 mmol/L (21-32); CHLORIDE 106 mmol/L (98-107); CREATININE 2.1 mg/dL (0.6-1.3); GLUCOSE 88 mg/dL (74-106); PHOSPHOROUS 3.8 mg/dL (2.5-4.9); POTASSIUM 3.7 mmol/L (3.5-5.1); TOTAL PROTEIN, SERUM 5.7 g/dL (6.4-8.2)
[2020-04-18 08:33] LABS: UREA NITROGEN, BLOOD 81 mg/dL (7-18)
[2020-04-18] MEDS: DONEPEZIL 10 MG TABLET PO SCH (08:58)
[2020-04-18] MEDS: CEphaleXIN 500 MG CAPSULE PO SCH (08:58)
[2020-04-18] MEDS: DIVALPROEX SPRINKLE 125 MG CAP.SPRINK PO SCH (08:58)
[2020-04-18] MEDS: MEMANTINE HCL 5 MG TABLET PO SCH (08:58)
[2020-04-18] MEDS: GABAPENTIN 100 MG CAPSULE PO SCH (08:58)
[2020-04-18] MEDS: CLOPIDOGREL 75 MG TABLET PO SCH (08:58)
[2020-04-18 09:00] VITALS: BP 159/52
[2020-04-18] MEDS: risperiDONE 0.25 MG TABLET PO SCH (09:00)
[2020-04-18] MEDS: METOPROLOL SUCCINATE XL 50 MG TAB.SR.24H PO SCH (09:00)
[2020-04-18] MEDS: Z GUARD REMEDY PASTE 57 GM TUBE TOP SCH (09:01)
[2020-04-18] MEDS: CLOTRIMAZOLE 1% CREAM 30 GM TUBE TOP SCH (09:01)
[2020-04-18] MEDS: MEGESTROL ACETATE 20 MG TABLET PO SCH (09:02)
[2020-04-18] MEDS: TADALAFIL 5 MG PO SCH (09:02)
[2020-04-19 15:07] LABS: A/G RATIO 1.1 (0.7-1.7); ALBUMIN 2.4 g/dL (2.9-4.4); ALPHA-1-GLOBULIN 0.3 g/dL (0.0-0.4); ALPHA-2-GLOBULIN 0.8 g/dL (0.4-1.0); BETA GLOBULIN 0.7 g/dL (0.7-1.3); GAMMA GLOBULIN 0.5 g/dL (0.4-1.8); GLOBULIN, TOTAL 2.2 g/dL (2.2-3.9); M-SPIKE Not Observed g/dL (Not Observed)
== END 2020-04-18 11:15 | DRG 885 ==
LOC: ER 16:25 → GPS 17:10
PROVIDERS: ADMIT Psychiatry & Neurology Psychiatry; ATTEND Internal Medicine
DX: F33.3 Major depressive disorder, recurrent, severe with psychotic symptoms (principal); F01.50 Vascular dementia, unspecified severity, without behavioral disturbance, psychotic disturbance, mood disturbance, and anxiety; N17.0 Acute kidney failure with tubular necrosis; N18.9 Chronic kidney disease, unspecified; E11.65 Type 2 diabetes mellitus with hyperglycemia; G93.41 Metabolic encephalopathy; F02.81 Dementia in other diseases classified elsewhere, unspecified severity, with behavioral disturbance; F23 Brief psychotic disorder; G93.40 Encephalopathy, unspecified; N39.0 Urinary tract infection, site not specified; S61.205D Unspecified open wound of left ring finger without damage to nail, subsequent encounter; W34.00XD Accidental discharge from unspecified firearms or gun, subsequent encounter; E11.40 Type 2 diabetes mellitus with diabetic neuropathy, unspecified; E03.9 Hypothyroidism, unspecified; E11.22 Type 2 diabetes mellitus with diabetic chronic kidney disease; I12.9 Hypertensive chronic kidney disease with stage 1 through stage 4 chronic kidney disease, or unspecified chronic kidney disease; G31.09 Other frontotemporal neurocognitive disorder; Z73.6 Limitation of activities due to disability; E78.5 Hyperlipidemia, unspecified; M89.9 Disorder of bone, unspecified; Z79.4 Long term (current) use of insulin; N13.9 Obstructive and reflux uropathy, unspecified; F29 Unspecified psychosis not due to a substance or known physiological condition; Z20.822 Contact with and (suspected) exposure to COVID-19; N40.1 Benign prostatic hyperplasia with lower urinary tract symptoms; D64.9 Anemia, unspecified; Z79.890 Hormone replacement therapy
CPT/HCPCS: 36415; 51798; 70450; 76770; 83615; 83735; 83921; 83970; 84100; 84155; 84156; 84165; 84300; 84443; 84520; 85025; 86140; 87077; 87086; J1815; J2358; J7030